=== PATIENT | female | born 1995 | race Two or more races ===

== ENCOUNTER 2022-06-12 22:19 | Emergency (ER) | payer MEDICAID, OTHER ==
[2022-06-13] MEDS ORDERED: CEPH-510 PO (16:50)
== END 2022-06-12 23:53 | disposition left against medical advice (07) ==
LOC: ER 22:19
DX: R52 Pain, unspecified (principal); Z53.21 Procedure and treatment not carried out due to patient leaving prior to being seen by health care provider

== ENCOUNTER 2022-06-13 12:31 | Emergency (ER) | payer MEDICAID ==
[~2022-06-13] VITALS: Ht 167.6 cm; Wt 158.3 kg
[2022-06-13 13:50] LABS: Urine Bacteria FEW /hpf (None Seen); Urine Blood 1+ /uL (Negative); Urine Hyaline Cast FEW /lpf (0 - 2); Urine Specific Gravity 1.016 (1.001-1.035); Urine WBC 340 /hpf (0 - 5); Urine WBC Clumps PRESENT /hpf (None Seen)
[2022-06-13 14:17] LABS: Basophils # (auto) 0 10 ^3/uL (0-0.2); Basophils % (auto) 0.2 % (0.0-2.0); Eosinophils # (auto) 0 10 ^3/uL (0-0.8); Eosinophils % (auto) 0.1 % (0.0-7.0); Hemoglobin 13.4 g/dL (12.2-16.2); Lymphocytes # (auto) 1.9 10 ^3/uL (0.4-5.4); Lymphocytes % (auto) 12.1 % (10.0-50.0); Mean Corpuscular Hemoglobin 28.9 pg (28.0-32.0); Mean Corpuscular Hgb Conc. 32.8 g/dL (32.0-36.0); Mean Corpuscular Volume 88.2 fL (80.0-100.0); Monocytes # (auto) 1.1 10 ^3/uL (0-1.3); Monocytes % (auto) 7.1 % (0.0-12.0); Neutrophils # (auto) 12.4 10 ^3/uL (1.6-8.6); Neutrophils % (auto) 80.5 % (37.0-80.0); Nucleated Red Blood Cells % 0.1 %; Red Blood Cells 4.65 10^6/uL (4.0-5.20); Red Cell Distribution Width 13.7 % (11.8-14.3); White Blood Cell 15.4 10^3/uL (4.4-10.8)
[2022-06-13 14:30] LABS: Potassium 4.6 mmol/L (3.5-5.1)
[2022-06-13 14:34] LABS: Albumin 3.7 g/dL (3.4-5.0); BUN/Creatinine Ratio 23.9; Calcium 9.5 mg/dL (8.5-10.1)
[2022-06-13 14:43] LABS: Bilirubin, Total 0.9 mg/dL (0.2-1.0); Total Protein 7.6 g/dL (6.4-8.2)
[2022-06-13] MEDS ORDERED: CEPHALEXIN 250 MG CAP PO ONE (16:00)
[2022-06-13] MEDS ORDERED: KETOROLAC TROMETH 30 MG/ML 1ML VIAL IV ONE (16:15)
[2022-06-13] MEDS ORDERED: cefTRIAXone 1GM/50ML D5W 50 ML IV ONE (16:15)
[2022-06-13] MEDS ORDERED: CEPH-510 PO (16:50)
[2022-06-13 17:33] VITALS: BP 142/91
== END 2022-06-13 17:36 | disposition home or self-care (01) ==
LOC: ER 12:31
DX: N12 Tubulo-interstitial nephritis, not specified as acute or chronic (principal)
CPT/HCPCS: 36415; 74176; 80053; 81001; 81025; 85025; 96365; 96375; 99284; J0696; J1885

== ENCOUNTER 2023-07-16 21:02 | Emergency (ER) | payer SELFPAY ==
[~2023-07-16] VITALS: Ht 167.6 cm; Wt 169.9 kg
[~2023-07-16 21:02] MED LIST: CEPH-510 PO
[2023-07-16 21:22] VITALS: BP 180/89; PULSE 88; RESP 18; TEMP 97.2; O2SAT 97
[2023-07-16 23:43] LABS: Rapid Strep A Screen-Throat Negative
[2023-07-17] MEDS ORDERED: BENZLOZ2 MT (00:17)
[2023-07-17] MEDS ORDERED: ALBUAER3 IN (00:17)
[2023-07-17] MEDS ORDERED: PRED20TA2 PO (00:17)
[2023-07-17] MEDS ORDERED: BENZ200C64 PO (00:17)
[2023-07-17] MEDS ORDERED: CLIN150C18 PO (00:17)
== END 2023-07-17 00:40 | disposition home or self-care (01) ==
LOC: ER 21:02
DX: J03.90 Acute tonsillitis, unspecified (principal); R05.9 Cough, unspecified; Z79.899 Other long term (current) drug therapy
CPT/HCPCS: 36415; 71045; 86308; 87070; 87880

== ENCOUNTER 2024-03-31 11:40 | Emergency (ER) | payer MEDICAID ==
[~2024-03-31] VITALS: Ht 167.6 cm; Wt 117.4 kg
[~2024-03-31 11:40] MED LIST changes: +ALBUAER3 IN; +BENZ200C64 PO; +BENZLOZ2 MT; +CLIN150C18 PO; +PRED20TA2 PO
[2024-03-31 13:38] VITALS: BP 140/76; PULSE 82; RESP 18; TEMP 99.1; O2SAT 96
[2024-03-31] MEDS ORDERED: IBUP-1456 PO (13:54)
== END 2024-03-31 14:02 | disposition home or self-care (01) ==
LOC: ER 11:40
DX: S93.401A Sprain of unspecified ligament of right ankle, initial encounter (principal); W18.09XA Striking against other object with subsequent fall, initial encounter; Y93.89 Activity, other specified; Y92.89 Other specified places as the place of occurrence of the external cause; Y99.8 Other external cause status
CPT/HCPCS: 73610

== ENCOUNTER 2024-11-10 00:31 | Emergency (ER) | payer MEDICAID ==
[~2024-11-10] VITALS: Ht 167.6 cm; Wt 173.8 kg
[~2024-11-10 00:31] MED LIST changes: +IBUP-1456 PO
[2024-11-10 01:23] VITALS: BP 158/92; PULSE 83; RESP 20; TEMP 97.6; O2SAT 97
[2024-11-10 01:47] LABS: Urine Bacteria None Seen /hpf (None Seen)
[2024-11-10 02:06] LABS: Urine Blood Negative /uL (Negative); Urine Clarity Turbid (Clear); Urine Color Yellow (Yellow); Urine Mucus FEW (None Seen); Urine Protein, UAD TRACE (Negative); Urine Specific Gravity 1.033 (1.001-1.035); Urine Squamous Epithelial Cell FEW /hpf (<5); Urine Urobilinogen Normal (Negative); Urine WBC 6 /HPF (0-5); Urine pH 5.5 (5.0-9.0)
[2024-11-10] MEDS ORDERED: ACET500T58 PO (02:32)
[2024-11-10] MEDS ORDERED: PHEN1TAB38 PO (02:32)
[2024-11-10] MEDS ORDERED: NITR-87 PO (02:32)
--- NOTE | 2024-11-10 02:32 | ED.PDOC ---
General HPI Comments Patient is a pleasant but morbidly obese 29-year-old female who arrives the ED today for evaluation of urinary discomfort and fullness feeling for the past four days. Patient states the symptoms came on four days ago and has been relatively unrelenting. Patient denies any fever nausea or vomiting. Patient denies any flank pain concerns. Patient was mildly hypertensive on arrival. Chief Complaint: Urinary Time Seen by MD: 00:33 Primary Care Provider: none Reviewed notes: Nurses Notes Allergies: Coded Allergies: NO KNOWN ALLERGIES (Unverified , 06/13/22) Home Meds Active Scripts Ibuprofen (Ibuprofen) 800 Mg Tab, 1 TAB PO TID, #30 TAB Prov:ONDINA FRY 03/31/24 Benzonatate (Benzonatate) 200 Mg Cap, 1 CAP PO TID, #30 CAP as needed for cough Prov:ANN HOFFMAN Q FISHERIES MANAGER 07/17/23 Prednisone (Prednisone) 20 Mg Tab, 1 TAB PO BID for 5 Days, #10 TAB Start tomorrow with food Prov:ANN HOFFMAN Q FISHERIES MANAGER 07/17/23 Albuterol Sulfate (VENTOLIN MDI) 90 Mcg Ih, 1 PUFF IN Q4HPRN PRN, #1 INH As needed for cough nasal congestion shortness of breath or wheezing Prov:ANN HOFFMAN Q FISHERIES MANAGER 07/17/23 Benzocaine-Menthol (Mouth-Thro (Cepacol Sore Throat) 1 Jacqueline Jacqueline, 1 JACQUELINE MT Q4HPRN PRN, #24 JACQUELINE As needed for sorethroat Prov:DALTONJOCELYNERASTO Q FISHERIES MANAGER 07/17/23 Clindamycin Hcl (Clindamycin Hcl) 150 Mg Cap, 1 CAP PO QID for 10 Days, #40 CAP Prov:DALTONBURAKFernando Q FISHERIES MANAGER 07/17/23 Cephalexin ( Keflex 500) 500 Mg Cap, 1 CAP PO QID for 10 Days, #40 CAP Prov:CAMPBELL JUÁREZ MD 06/13/22 Information Source: Patient Mode of Arrival: Ambulatory Severity: Moderate Timing: Days Duration: Since onset Prehospital treatment: None Onset: Spontaneous Symptoms: Dysuria History of: None Location: Suprapubic, Abdomen Past Medical History PAST MEDICAL HISTORY: Denies Surgical History: Denies all surgeries TOOL REPAIRER BENCH History: No Pertinent TOOL REPAIRER BENCH History Family History Family History: Reviewed,noncontributory to illness Social History Smoker: Non-Smoker Alcohol: Denies ETOH Use Drugs: Denies Drug Use Lives In: Home Constitutional: denies: chills, diaphoresis, fatigue, fever, malaise, sweats, weakness, others EENTM: denies: blurred vision, double vision, ear bleeding, ear discharge, ear drainage, ear pain, ear ringing, eye pain, eye redness, hearing loss, mouth pain, mouth swelling, nasal discharge, nose bleeding, nose congestion, nose pain, photophobia, tearing, throat pain, throat swelling, voice changes, others Respiratory: denies: cough, hemoptysis, orthopnea, SOB at rest, shortness of breath, SOB with excertion, stridor, wheezing, others Cardiovascular: denies: chest pain, dizzy spells, diaphoresis, Dyspnea on exertion, edema, irregular heart beat, left arm pain, lightheadedness, palpitations, PND, syncope, others Gastrointestinal: denies: abdomen distended, abdominal pain, blood streaked bowels, constipated, diarrhea, dysphagia, difficulty swallowing, hematemesis, melena, nausea, poor appetite, poor fluid intake, rectal bleeding, rectal pain, vomiting, others Genitourinary: reports: dysuria; denies: abnormal vagina bleeding, burning, dyspareunia, flank pain, frequency, hematuria, incontinence, pain, , vagina discharge, urgency, others Neurological: denies: dizziness, fainting, headache, left sided numbness, left sided weakness, numbness, paresthesia, pre-existing deficit, right sided numbnes s, right sided weakness, seizure, speech problems, tingling, tremors, weakness, others Musculoskeletal: denies: back pain, gout, joint pain, joint swelling, muscle pain, muscle stiffness, neck pain, others Integumetry: denies: bruises, change in color, change in hair/nails, dryness, laceration, lesions, lumps, rash, wounds, others Allergic/Immunocompromised: denies: Difficulty Healing, Frequent Infections, Hives, Itching, others Hematologic/Lymphatic: denies: anemia, blood clots, easy bleeding, easy bruising, swollen glands, others Endocrine: denies: excessive hunger, excessive sweating, excessive thirst, excessive urination, flushing, intolerance to cold, intolerance to heat, unexplained weight gain, unexplained weight loss, others Psychiatric: denies: anxiety, bipolar disorder, depression, hopeless, panic disorder, schizophrenia, sleepless, suicidal, others Physical Exam General Appearance: Moderate Distress ([id number] distress due to urinary discomfort.), Normal HEENT: Normal ENT Inspection, Pharynx Normal, TMs Normal Neck: Full Range of Motion, Non-Tender, Normal, Normal Inspection Respiratory: Chest Non-Tender, Lungs Clear, No Accessory Muscle Use, No Respiratory Distress, Normal Breath Sounds Cardiovascular: No Edema, No JVD, No Murmur, No Gallop, Normal Peripheral Pulses, Regular Rate/Rhythm Breast Exam: Deferred Gastrointestinal: No Organomegaly, Non Tender, No Pulsatile Mass, Normal Bowel Sounds, Soft Genitalia: Deferred Pelvic: Other (Mild suprapubic tenderness. Difficult to assess due to body habitus.) Rectal: Deferred Extremities: No calf tenderness, Normal capillary refill, Normal inspection, Normal range of motion, Non-tender, No pedal edema Neurologic: Alert, No Motor Deficits, Normal Affect, Normal Mood, No Sensory Deficits Cerebellar Function: Normal Reflexes: Normal Skin: Dry, Normal Color, Warm Lymphatic: No Adenopathy Was a procedure done? Was a procedure done?: No Differential Diagnosis Kidney stone (Female): N/A Urinary Problem (Female): Other (UTI, pyelonephritis, dysuria) X-Ray, Labs, Meds, VS Vital Signs Date Time Temp Pulse Resp B/P (MAP) Pulse Ox O2 Delivery O2 Flow Rate FiO2 11/10/24 01:23 97.6 83 20 158/92 (114) 97 97.6 Lab Test 11/10/24 00:40 Range/Units Urine Color Yellow Yellow Urine Clarity Turbid H Clear Urine pH 5.5 5.0-9.0 Urine Specific [place] 1.033 1.001-1.035 Urine Protein Trace H Negative Urine Ketones Trace Negative Urine Blood Negative Negative /uL Urine Nitrite Negative Negative Urine Bilirubin Negative Negative Urine Urobilinogen Normal Negative mg/dL Urine Leukocyte Esterase Trace Negative /uL Urine RBC 3 0 - 4 /hpf Urine Microscopic WBC 6 H 0-5 /HPF Urine Squamous Epithelial Cells Few <5 /hpf Urine Bacteria None seen None Seen /hpf Urine Mucus Few None Seen Urine Glucose Normal Normal mg/dL Urine Test Negative Negative X-Ray, Labs, Meds, VS Comment All studies performed the ED were evaluated by me personally. Patient responded well to medication dispensed. Patient has a small urinary tract infection. Patient received 1st dose of antibiotics tonight. Advised patient utilize antibiotics as directed until completion. Time of 1ST Reevaluation: 02:30 Reevaluation 1ST: Improved Consultation: PCP Patient Education/Counseling: Diagnosis, Treatment Family Education/Counseling: Diagnosis, Treatment Departure 1 Departure Time of Disposition: 02: Impression: Primary Impression: Urinary tract infection Disposition: HOME / SELF CARE / HOMELESS Condition: Stable Additional Instructions: Advised patient utilize antibiotics as directed until completion as well as additional medication as needed. Good hydration throughout illness event. e-Prescriptions Acetaminophen (Acetaminophen) 500 Mg Tab 500 MG PO Q4HP PRN, #20 TAB Prov: EVA BAUM PAC 11/10/24 Phenazopyridine HCl (Phenazopyridine Hydrochlo 100 mg) 1 Tab Tab 1 TAB PO Q8HP PRN, #10 TAB Prov: EVA BAUM PAC 11/10/24 Nitrofurantoin Monohydrate Mac (Macrobid) 100 Mg Cap 100 MG PO BID for 3 Days, #6 CAP Prov: EVA BAUM PAC 11/10/24 Discharged With: Self, Friend Critical Care Note Critical Care Time?: No Stability Stability form required: No Heart Score Heart Score: Heart Score Response (Comments) Value History N/A 0 EKG N/A 0 Age N/A 0 Risk Factors N/A 0 Troponin N/A 0 Total 0 EVA BAUM PAC November 10, 2024 02:32
[2024-11-10] MEDS: PHENAZOPYRIDINE HCL 100 MG TAB PO ONE (03:15)
[2024-11-10] MEDS: KETOROLAC TROMETH 60MG/2ML VIAL IM ONE (03:15)
[2024-11-10] MEDS: NITROFURANTOIN 100 mg CAP PO ONE (03:16)
== END 2024-11-10 03:23 | disposition home or self-care (01) ==
LOC: ER 00:31
DX: N39.0 Urinary tract infection, site not specified (principal); E66.01 Morbid (severe) obesity due to excess calories; I10 Essential (primary) hypertension; Z79.1 Long term (current) use of non-steroidal anti-inflammatories (NSAID); Z79.52 Long term (current) use of systemic steroids; Z68.44 Body mass index [BMI] 60.0-69.9, adult; Z32.02 Encounter for pregnancy test, result negative
CPT/HCPCS: 81001; 81025; 96372; 99283; J1885

== ENCOUNTER 2025-02-19 12:54 | Emergency (ER) | payer MEDICAID ==
[~2025-02-19] VITALS: Ht 167.6 cm; Wt 170.6 kg
[~2025-02-19 12:54] MED LIST changes: +ACET500T58 PO; +NITR-87 PO; +PHEN1TAB38 PO
--- NOTE | 2025-02-19 13:28 | ED.PDOC ---
General HPI Comments This is a 29-year-old female with past medical history of hypertension and recurrent UTI came to the hospital due to burning sensation while passing urine since 4 days. She also reports of urgency, abdominal pain, frequency, nausea, vomiting and diarrhea. She denies fever, chest pain, shortness of breath, or any unusual food intake. She reports of having recurrent UTI since 3 years which happens after having intercourse with her boyfriend. Within last year she had 4 UTI. Per patient, she recently had screening for STD which was negative. Chief Complaint: Urinary Time Seen by MD: 13:03 Primary Care Provider: none Allergies: Coded Allergies: Penicillins (Verified Allergy, Unknown, 02/19/25) Home Meds Active Scripts Ciprofloxacin Hcl (Cipro) 500 Mg Tab, 500 MG PO BID for 10 Days, #20 TAB Prov:KENN JARVIS RESDIENT 02/19/25 Acetaminophen (Acetaminophen) 500 Mg Tab, 500 MG PO Q4HP PRN, #20 TAB Prov:EVA BAUM PAC 11/10/24 Phenazopyridine HCl (Phenazopyridine Hydrochlo 100 mg) 1 Tab Tab, 1 TAB PO Q8HP PRN, #10 TAB Prov:EVA BAUM PAC 11/10/24 Nitrofurantoin Monohydrate Mac (Macrobid) 100 Mg Cap, 100 MG PO BID for 3 Days, #6 CAP Prov:EVA BAUM PAC 11/10/24 Ibuprofen (Ibuprofen) 800 Mg Tab, 1 TAB PO TID, #30 TAB Prov:ONDINA FRY PA 03/31/24 Benzonatate (Benzonatate) 200 Mg Cap, 1 CAP PO TID, #30 CAP as needed for cough Prov:BURAK HOFFMANA Q LPC 07/17/23 Prednisone (Prednisone) 20 Mg Tab, 1 TAB PO BID for 5 Days, #10 TAB Start tomorrow with food Prov:BURAK HOFFMANA Q LPC 07/17/23 Albuterol Sulfate (VENTOLIN MDI) 90 Mcg Ih, 1 PUFF IN Q4HPRN PRN, #1 INH As needed for cough nasal congestion shortness of breath or wheezing Prov:JOCELYN HOFFMANALDA Q LPC 07/17/23 Benzocaine-Menthol (Mouth-Thro (Cepacol Sore Throat) 1 Jacqueline Jacqueline, 1 JACQUELINE MT Q4HPRN PRN, #24 JACQUELINE As needed for sorethroat Prov:ANN HOFFMAN Q LPC 07/17/23 Clindamycin Hcl (Clindamycin Hcl) 150 Mg Cap, 1 CAP PO QID for 10 Days, #40 CAP Prov:ANN HOFFMAN Q LPC 07/17/23 Cephalexin ( Keflex 500) 500 Mg Cap, 1 CAP PO QID for 10 Days, #40 CAP Prov:CAMPBELL JUÁREZ MD 06/13/22 Information Source: Patient Mode of Arrival: Ambulatory Severity: Moderate Timing: Days Duration: Days associated signs and symptoms: Abdominal Pain, Nausea, Vomiting, Dysuria, Frequency, Urgency Past Medical History PAST MEDICAL HISTORY: HTN, Denies Past Medical History (Other): Recurrent UTI Surgical History: Denies all surgeries DIGITAL CAMERA TECHNICIAN History: No Pertinent DIGITAL CAMERA TECHNICIAN History Family History Family History: Reviewed,noncontributory to illness Social History Smoker: Non-Smoker Alcohol: Denies ETOH Use Drugs: Denies Drug Use Lives In: Home Constitutional: denies: chills, diaphoresis, fatigue, fever, malaise, sweats, w eakness, others EENTM: denies: blurred vision, double vision, ear bleeding, ear discharge, ear drainage, ear pain, ear ringing, eye pain, eye redness, hearing loss, mouth pain, mouth swelling, nasal discharge, nose bleeding, nose congestion, nose pain, photophobia, tearing, throat pain, throat swelling, voice changes, others Respiratory: denies: cough, hemoptysis, orthopnea, SOB at rest, shortness of breath, SOB with excertion, stridor, wheezing, others Cardiovascular: denies: chest pain, dizzy spells, diaphoresis, Dyspnea on exertion, edema, irregular heart beat, left arm pain, lightheadedness, palpitations, PND, syncope, others Gastrointestinal: reports: abdominal pain, diarrhea; denies: abdomen distended, blood streaked bowels, constipated, dysphagia, difficulty swallowing, hematemesis, melena, nausea, poor appetite, poor fluid intake, rectal bleeding, rectal pain, vomiting, others Genitourinary: reports: burning, dysuria, frequency, urgency; denies: abnormal vagina bleeding, dyspareunia, flank pain, hematuria, incontinence, pain, , vagina discharge, others Neurological: denies: dizziness, fainting, headache, left sided numbness, left sided weakness, numbness, paresthesia, pre-existing deficit, right sided numbness, right sided weakness, seizure, speech problems, tingling, tremors, weakness, others Musculoskeletal: denies: back pain, gout, joint pain, joint swelling, muscle pain, muscle stiffness, neck pain, others Integumetry: denies: bruises, change in color, change in hair/nails, dryness, laceration, lesions, lumps, rash, wounds, others Allergic/Immunocompromised: denies: Difficulty Healing, Frequent Infections, Hives, Itching, others Hematologic/Lymphatic: denies: anemia, blood clots, easy bleeding, easy bruising, swollen glands, others Endocrine: denies: excessive hunger, excessive sweating, excessive thirst, excessive urination, flushing, intolerance to cold, intolerance to heat, unexpl ained weight gain, unexplained weight loss, others Psychiatric: denies: anxiety, bipolar disorder, depression, hopeless, panic disorder, schizophrenia, sleepless, suicidal, others Physical Exam General Appearance: No Apparent Distress, Normal HEENT: Normal ENT Inspection, Pharynx Normal, TMs Normal Neck: Full Range of Motion, Non-Tender, Normal, Normal Inspection Respiratory: Chest Non-Tender, Lungs Clear, No Accessory Muscle Use, No Respiratory Distress, Normal Breath Sounds Cardiovascular: No Edema, No JVD, No Murmur, No Gallop, Normal Peripheral Pulses, Regular Rate/Rhythm Breast Exam: Deferred Gastrointestinal: Tenderness Genitalia: Deferred Pelvic: Deferred Rectal: Deferred Extremities: No calf tenderness, Normal capillary refill, Normal inspection, Normal range of motion, Non-tender, No pedal edema Neurologic: Alert, continuity manager II-XII nml as Tested, No Motor Deficits, Normal Affect, Normal Mood, No Sensory Deficits Cerebellar Function: Normal Reflexes: Normal Skin: Dry, Normal Color, Warm Lymphatic: No Adenopathy Was a procedure done? Was a procedure done?: No Differential Diagnosis Kidney stone (Female): Urolithiasis Urinary Problem (Male): Plelonephritis, UTI X-Ray, Labs, Meds, VS Vital Signs Date Time Temp Pulse Resp B/P (MAP) Pulse Ox O2 Delivery O2 Flow Rate FiO2 02/19/25 15:07 98.8 86 16 156/91 (112) 97 98.8 02/19/25 14:30 98.8 02/19/25 13:32 98.6 98 18 157/97 (117) 95 98.6 02/19/25 13:32 98 18 95 Room Air* 0 21 02/19/25 12:56 98.5 98 18 157/97 95 98.5 Lab Test 02/19/25 14:32 02/19/25 13:49 Range/Units Urine Color Light-brown Yellow Urine Clarity Turbid H Clear Urine pH 5.5 5.0-9.0 Urine Specific [place] 1.015 1.001-1.035 Urine Protein Trace H Negative Urine Ketones Negative Negative Urine Blood 3+ H Negative /uL Urine Nitrite Negative Negative Urine Bilirubin Negative Negative Urine Urobilinogen Normal Negative mg/dL Urine Leukocyte Esterase 3+ Negative /uL Urine RBC 130 0 - 4 /hpf Urine WBC Clumps Present None Seen /hpf Urine Microscopic WBC 324 H 0-5 /HPF Urine Squamous Epithelial Cells Mod <5 /hpf Urine Bacteria Few H None Seen /hpf Urine Mucus Few None Seen Urine Yeast (Budding) Occasional None Seen /hpf Urine Glucose Normal Normal mg/dL Urine Test Negative Negative White Blood Count 14.2 H 4.4-10.8 10^3/uL Red Blood Count 4.53 4.0-5.20 10^6/uL Hemoglobin 12.8 12.2-16.2 g/dL Hematocrit 39.0 36.0-46.0 % Mean Corpuscular Volume 86.1 80.0-100.0 fL Mean Corpuscular Hemoglobin 28.3 28.0-32.0 pg Mean Corpuscular Hemoglobin Concent 32.9 32.0-36.0 g/dL Red Cell Distribution Width 14.3 11.8-14.3 % Platelet Count 335 140-450 10^3/uL Mean Platelet Volume 8.0 6.9-10.8 fL Neutrophils (%) (Auto) 60.1 37.0-80.0 % Lymphocytes (%) (Auto) 31.5 10.0-50.0 % Monocytes (%) (Auto) 6.2 0.0-12.0 % Eosinophils (%) (Auto) 1.9 0.0-7.0 % Basophils (%) (Auto) 0.3 0.0-2.0 % Neutrophils # (Auto) 8.5 1.6-8.6 10 ^3/uL Lymphocytes # (Auto) 4.5 0.4-5.4 10 ^3/uL Monocytes # (Auto) 0.9 0-1.3 10 ^3/uL Eosinophils # (Auto) 0.3 0-0.8 10 ^3/uL Basophils # (Auto) 0 0-0.2 10 ^3/uL Nucleated Red Blood Cells 0.0 % Sodium Level 140 136-145 mmol/L Potassium Level 3.4 L 3.5-5.1 mmol/L Chloride Level 106 98-107 mmol/L Carbon Dioxide Level 21 20-31 mmol/L Anion Gap 13 5-15 Blood Urea Nitrogen 9 9-23 mg/dL Creatinine 0.67 0.550-1.02 mg/dL Glomerular Filtration Rate Calc 122 >90 mL/min BUN/Creatinine Ratio 13.4 10.0-20.0 Serum Glucose 87 74-106 mg/dL Calcium Level 9.2 8.7-10.4 mg/dL Total Bilirubin 0.6 0.2-1.0 mg/dL Aspartate Amino Transferase (AST) 12 L 13-40 U/L Alanine Aminotransferase (ALT) 15 7-40 U/L Alkaline Phosphatase 73 46-116 U/L Total Protein 7.6 5.7-8.2 g/dL Albumin 4.4 3.2-4.8 g/dL Beta HCG, Quantitative 0.6 L 1.5-4.2 mIU/mL Current Medications Medications (Trade) Dose Ordered Sig/Steven Route Start Time Stop Time Status Last Admin Acetaminophen (Tylenol Tablet) 650 mg ONCE ONCE PO 02/19/25 13:30 02/19/25 13:31 DC 02/19/25 13:30 Potassium Bicarbonate (Klor-Con/Ef) 25 meq ONCE ONCE PO 02/19/25 14:45 02/19/25 15:00 DC 02/19/25 15:06 Time of 1ST Reevaluation: 14:00 Reevaluation 1ST: Unchanged Time of 2ND Reevaluation: 16:00 Patient Education/Counseling: Diagnosis, Treatment, Prognosis, Need For Follow Up Family Education/Counseling: No Family Present Comments Patient was admitted due to abdominal pain and dysuria. Patient has history of recurrent UTI. CBC shows WBC raised at 14.2 CMP shows potassium at 3.4, KCl oral given to the patient. Beta hCG is negative Urinalysis shows WBC 324, few bacteria, leukocyte esterase +3, nitrite negative Patient was given ciprofloxacin 500 mg b.i.d. for 10 days Patient discharged home Follow up with the PCP SEPSIS Sepsis Screen Date sepsis recognized/suspect: Feb 19, 2025 Time Sepsis recognized/suspect: 1256 Recent Procedure: No On Antibiotic Therapy: No Respiratory Rate >20: No Heart Rate >90: Yes Temp<36 C (96.8 F) or >38.3 C: No SBP <90 or MAP <65 mmHG: No New Acute Mental Status Change: No Is the patient on CPAP, BIPAP,: No Physician Orders Urine Dip (02/19/25 ) Vital Signs Date Time Temp Pulse Resp B/P (MAP) Pulse Ox O2 Delivery O2 Flow Rate FiO2 02/19/25 15:07 98.8 86 16 156/91 (112) 97 98.8 02/19/25 14:30 98.8 02/19/25 13:32 98.6 98 18 157/97 (117) 95 98.6 02/19/25 13:32 98 18 95 Room Air* 0 21 02/19/25 12:56 98.5 98 18 157/97 95 98.5 Laboratory Tests Test 02/19/25 13:49 White Blood Count 14.2 10^3/uL (4.4-10.8) H Medications Medications Dose Ordered Sig/Steven Route Start Time Stop Time Status Last Admin Dose Admin Acetaminophen 650 mg ONCE ONCE PO 02/19/25 13:30 02/19/25 13:31 DC 02/19/25 13:30 Potassium Bicarbonate 25 meq ONCE ONCE PO 02/19/25 14:45 02/19/25 15:00 DC 02/19/25 15:06 Departure 1 Departure Time of Disposition: 17:00 Impression: Primary Impression: Pyelonephritis Additional Impression: Urinary tract infection Disposition: 01 HOME / SELF CARE / HOMELESS Condition: Fair e-Prescriptions Ciprofloxacin Hcl (Cipro) 500 Mg Tab 500 MG PO BID for 10 Days, #20 TAB Prov: KENN JARVIS RESDIENT 02/19/25 Critical Care Note Critical Care Time?: No Stability Stability form required: No Heart Score Heart Score: Heart Score Response (Comments) Value History N/A 0 EKG N/A 0 Age <45 0 Risk Factors 1 or 2 risk factors 1 Troponin N/A 0 Total 1 KENN JARVIS Feb 19, 2025 13:28
[2025-02-19] MEDS: ACETAMINOPHEN 325 MG TAB PO ONE (13:30)
[2025-02-19 13:32] VITALS: PULSE 98; RESP 18; O2SAT 95
[2025-02-19 14:10] LABS: Hematocrit 39.0 % (36.0-46.0); Hemoglobin 12.8 g/dL (12.2-16.2); Mean Corpuscular Hemoglobin 28.3 pg (28.0-32.0); Mean Corpuscular Volume 86.1 fL (80.0-100.0); Nucleated Red Blood Cells % 0.0 %
[2025-02-19 14:26] LABS: Alanine Aminotransferase 15 U/L (7-40); Albumin 4.4 g/dL (3.2-4.8); Alkaline Phosphatase 73 U/L (46-116); Anion Gap 13 (5-15); BUN/Creatinine Ratio 13.4 (10.0-20.0); Bilirubin, Total 0.6 mg/dL (0.2-1.0); Blood Urea Nitrogen 9 mg/dL (9-23); Calcium 9.2 mg/dL (8.7-10.4); Carbon Dioxide 21 mmol/L (20-31); Chloride 106 mmol/L (98-107); Glucose 87 mg/dL (74-106); Sodium 140 mmol/L (136-145); Total Protein 7.6 g/dL (5.7-8.2)
[2025-02-19 14:30] LABS: Potassium 3.4 mmol/L (3.5-5.1)
[2025-02-19 15:04] LABS: Urine Budding Yeast OCCASIONAL /hpf (None Seen); Urine Protein, UAD TRACE (Negative); Urine WBC Clumps PRESENT /hpf (None Seen)
[2025-02-19] MEDS: POTASSIUM EFFERVESENT TAB 25 MEQ PO ONE (15:06)
[2025-02-19] MEDS ORDERED: CIPR-173 PO (17:08)
[2025-02-19 17:17] VITALS: BP 156/58; PULSE 84; RESP 17; TEMP 98.7; O2SAT 99
== END 2025-02-19 17:20 | disposition home or self-care (01) ==
LOC: ER 12:54
DX: N39.0 Urinary tract infection, site not specified (principal); N12 Tubulo-interstitial nephritis, not specified as acute or chronic; R10.2 Pelvic and perineal pain; I10 Essential (primary) hypertension; Z88.0 Allergy status to penicillin; Z87.440 Personal history of urinary (tract) infections; Z79.1 Long term (current) use of non-steroidal anti-inflammatories (NSAID); Z79.52 Long term (current) use of systemic steroids; Z79.899 Other long term (current) drug therapy
CPT/HCPCS: 36415; 80053; 81001; 81025; 84702; 85025